=== PATIENT | female | born 2005 | race African-American/Black ===

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

== ENCOUNTER 2024-06-03 00:08 | Emergency (ER) | payer MEDICAID ==
[~2024-06-03] VITALS: Ht 162.6 cm; Wt 52.7 kg
[~2024-06-03 00:08] MED LIST changes: +MOTRIN 800800 MG/TAB PO
[2024-06-03 00:13] VITALS: TEMP 98.8
[2024-06-03] MEDS ORDERED: Ondansetron 4 MG/2 ML VIAL IV ONE (01:00)
[2024-06-03] MEDS ORDERED: NS 1,000 ML IV ONE (01:00)
[2024-06-03 01:15] LABS: BASO % 0.7 % (0.0-2.0); EOS # 0.2 K/mm3 (0.0-0.7); GRAN % 50.6 % (42.2-75.2); HEMATOCRIT 37.1 % (35.0-45.0); HEMOGLOBIN 12.4 g/dl (12.0-15.0); LYMPH # 2.2 K/mm3 (1.2-3.4); LYMPH % 36.2 % (20.0-51.0); MEAN CELL VOLUME 91 fl (80.0-95.0); MEAN CORPUSCULAR HEMOGLOBIN 30 pg (26-32); MEAN CORPUSCULAR HGB CONC 33 g/dl (33.0-37.0); MEAN PLATELET VOLUME 9.6 fl (7.4-10.4); MONO # 0.6 K/mm3 (0.1-0.6); MONO % 9.3 % (1.7-9.3); PLATELET COUNT 303 K/mm3 (130-400); RED BLOOD COUNT 4.09 M/mm3 (4.10-5.30); REDCELL DISTRIBUTION WIDTH-CV 12.6 % (11.5-14.5)
[2024-06-03 01:17] LABS: COLLECTION METHOD CLEAN CATCH
[2024-06-03 01:29] LABS: URINE APPEARANCE CLEAR (CLEAR/HAZY); URINE BLOOD NEGATIVE (NEGATIVE); URINE COLOR Dark Yellow (YELLOW); URINE GLUCOSE NEGATIVE (NEGATIVE); URINE KETONE 4+ (NEGATIVE); URINE NITRATE NEGATIVE (NEGATIVE); URINE PROTEIN(semi-quant) 1+ (NEGATIVE)
[2024-06-03 01:44] LABS: ALBUMIN 4.4 g/dL (3.5-5.0); BILIRUBIN,TOTAL 0.7 mg/dL (0.2-1.2); CALCIUM 9.8 mg/dL (8.4-10.2); CREATININE, serum 0.72 mg/dL (0.57-1.11); POTASSIUM 3.5 mEq/L (3.5-4.5); TOTAL PROTEIN 8.3 g/dl (6.2-8.1)
[2024-06-03] MEDS ORDERED: ZOFRAN 4MG T4 MG/TAB PO (02:38)
[2024-06-03 02:54] VITALS: BP 112/76; PULSE 94
== END 2024-06-03 02:57 | disposition home or self-care (01) ==
LOC: COL.ER 00:08
PROVIDERS: Emergency Medicine
DX: R11.2 Nausea with vomiting, unspecified (principal)
CPT/HCPCS: J2405; J7030